=== PATIENT | female | born 1930 | race Caucasian/White ===

== ENCOUNTER 2018-05-06 15:25 | Inpatient (IN) | payer MEDICARE, OTHER ==
[~2018-05-06] VITALS: Ht 177.8 cm; Wt 119.7 kg
[2018-05-06 16:03] LABS: BASOPHILS ABSOLUTE AUTO 0.02 K/mm3 (0.00-0.23); BASOPHILS PERCENT AUTO 0 % (0-2); EOSINOPHILS PERCENT AUTO 0 % (0-6); Hematocrit 36.5 % (33.0-51.0); IMMATURE GRAN ABSOLUTE AUTO 0.06 K/mm3 (0.00-0.10); IMMATURE GRAN PERCENT AUTO 0 % (0-1); LYMPHOCYTES ABSOLUTE AUTO 0.86 K/mm3 (0.84-5.20); LYMPHOCYTES PERCENT AUTO 6 % (21-46); MONOCYTES ABSOLUTE AUTO 0.89 K/mm3 (0.16-1.47); MONOCYTES PERCENT AUTO 6 % (4-13); Mean Corpuscular HGB 28.2 pg (26.0-34.0); Mean Corpuscular HGB Conc 32.9 g/dL (31.5-36.5); Mean Corpuscular Volume 86 fL (80-100); Mean Platelet Volume 10.1 fL (9.1-12.4); NEUTROPHILS PERCENT AUTO 88 % (41-73); Platelet Count 159 K/mm3 (150-400); RDW Coefficient Variation 13.4 % (11.7-14.2); RDW Standard Deviation 42.1 fL (35.1-46.3); Red Blood Cell Count 4.26 M/mm3 (3.80-5.20); White Blood Cell Count 15.43 K/mm3 (4.00-11.30)
[2018-05-06] MEDS ORDERED: Micro-K10 MEQ PO (16:12)
[2018-05-06] MEDS ORDERED: METO2.5 PO (16:12)
[2018-05-06] MEDS ORDERED: AMLO5 PO (16:13)
[2018-05-06] MEDS ORDERED: BENA20 PO (16:13)
[2018-05-06] MEDS ORDERED: BAYER CHEWABLE81 MG PO (16:14)
[2018-05-06] MEDS ORDERED: LEVSOD100 PO (16:14)
[2018-05-06] MEDS ORDERED: CYAN500 PO (16:15)
[2018-05-06] MEDS ORDERED: FURO20 PO (16:16)
[2018-05-06 16:27] LABS: Albumin, Blood 2.8 g/dL (3.4-5.0); Albumin/Globulin Ratio 0.6 (0.8-1.8); Bilirubin, Total 0.7 mg/dL (0.1-1.0); Bun/Creatinine Ratio 21.6 (12.0-20.0); Calcium, Blood 9.1 mg/dL (8.5-10.1); Creatinine, Blood 1.62 mg/dL (0.40-1.00); Globulin, Blood 4.4 g/dL (2.2-4.0); Potassium, Blood 2.8 mmol/L (3.5-5.5); Total Protein, Blood 7.2 g/dL (6.4-8.2); Troponin I 0.086 ng/mL (0.000-0.040)
[2018-05-06 18:22] LABS: Bilirubin, Urine Neg (Neg); Blood, Urine 4+ (Neg); Glucose Qualitative, Urine Neg (Neg); Ketones, Urine Neg (Neg); Leukocyte Esterase, Urine 3+ (Neg); Nitrite, Urine Neg (Neg); Protein, Urine 2+ (Neg); Urobilinogen, Urine NORM (Normal)
[2018-05-06 18:46] LABS: Appearance, Urine Cloudy (Clear); Color, Urine Yellow (P-Yellow)
[2018-05-06 18:56] LABS: White Blood Cells, Urine TNTC /hpf (0-5)
[2018-05-06 18:58] LABS: Bacteria Many /hpf; Squamous Epithelial Cells Many /hpf (Few)
[2018-05-06 18:59] LABS: Renal Epithelial Few /hpf (0-Rare)
[2018-05-06 19:15] LABS: Creatine Kinase MB Index 0.8 (0.0-4.0); Troponin I 0.086 ng/mL (0.000-0.040)
[2018-05-06 20:42] LABS: Influenza A Negative (NEGATIVE); Influenza B Negative (NEGATIVE)
[2018-05-07] MEDS ORDERED: VIT1CAPS12 PO (02:32)
[2018-05-07 03:26] LABS: Hematocrit 34.2 % (33.0-51.0); Hemoglobin 11.1 g/dL (11.5-16.0); Mean Corpuscular HGB 28.2 pg (26.0-34.0); Mean Corpuscular HGB Conc 32.5 g/dL (31.5-36.5); Mean Corpuscular Volume 87 fL (80-100); Mean Platelet Volume 10.3 fL (9.1-12.4); Platelet Count 109 K/mm3 (150-400); RDW Coefficient Variation 13.2 % (11.7-14.2); RDW Standard Deviation 41.8 fL (35.1-46.3); Red Blood Cell Count 3.94 M/mm3 (3.80-5.20); White Blood Cell Count 10.62 K/mm3 (4.00-11.30)
[2018-05-07 03:42] LABS: Creatine Kinase MB 4.1 ng/mL (0.0-3.6); Creatine Kinase MB Index 0.8 (0.0-4.0); Troponin I 0.224 ng/mL (0.000-0.040)
[2018-05-07 03:53] LABS: Magnesium, Blood 1.6 mg/dL (1.6-2.4)
[2018-05-07 03:54] LABS: Albumin, Blood 2.3 g/dL (3.4-5.0); Albumin/Globulin Ratio 0.6 (0.8-1.8); Bilirubin, Total 0.6 mg/dL (0.1-1.0); Bun/Creatinine Ratio 23.1 (12.0-20.0); Calcium, Blood 8.6 mg/dL (8.5-10.1); Creatinine, Blood 1.43 mg/dL (0.40-1.00); Globulin, Blood 3.9 g/dL (2.2-4.0); Potassium, Blood 2.6 mmol/L (3.5-5.5); Thyroid Stimulating Hormone 0.692 uIU/mL (0.360-4.800); Total Protein, Blood 6.2 g/dL (6.4-8.2)
[2018-05-07 03:58] LABS: BAND PERCENT MAN 21 % (0-8); BASOPHILS PERCENT MAN 0 % (0-2); EOSINOPHILS PERCENT MAN 0 % (0-6); LYMPHOCYTES ABSOLUTE MAN 0.21 K/mm3 (0.84-5.20); LYMPHOCYTES PERCENT MAN 2 % (21-46); MONOCYTES ABSOLUTE MAN 0.42 K/mm3 (0.16-1.47); MONOCYTES PERCENT MAN 4 % (4-13); NEUTROPHILS ABSOLUTE MAN 9.98 K/mm3 (1.96-9.15); SEG NEUTROPHILS PERCENT MAN 73 % (41-73); TOTAL CELLS COUNTED 100
[2018-05-07 13:45] LABS: Creatine Kinase MB 6.7 ng/mL (0.0-3.6); Troponin I 0.376 ng/mL (0.000-0.040)
[2018-05-08 05:19] LABS: BASOPHILS ABSOLUTE AUTO 0.01 K/mm3 (0.00-0.23); BASOPHILS PERCENT AUTO 0 % (0-2); EOSINOPHILS PERCENT AUTO 0 % (0-6); Hematocrit 34.9 % (33.0-51.0); Hemoglobin 11.3 g/dL (11.5-16.0); IMMATURE GRAN ABSOLUTE AUTO 0.06 K/mm3 (0.00-0.10); IMMATURE GRAN PERCENT AUTO 1 % (0-1); LYMPHOCYTES ABSOLUTE AUTO 0.71 K/mm3 (0.84-5.20); LYMPHOCYTES PERCENT AUTO 10 % (21-46); MONOCYTES ABSOLUTE AUTO 0.63 K/mm3 (0.16-1.47); MONOCYTES PERCENT AUTO 8 % (4-13); Mean Corpuscular HGB 27.8 pg (26.0-34.0); Mean Corpuscular HGB Conc 32.4 g/dL (31.5-36.5); Mean Corpuscular Volume 86 fL (80-100); Mean Platelet Volume 10.6 fL (9.1-12.4); NEUTROPHILS ABSOLUTE AUTO 6.08 K/mm3 (1.96-9.15); NEUTROPHILS PERCENT AUTO 81 % (41-73); Platelet Count 109 K/mm3 (150-400); RDW Coefficient Variation 13.3 % (11.7-14.2); Red Blood Cell Count 4.07 M/mm3 (3.80-5.20); White Blood Cell Count 7.49 K/mm3 (4.00-11.30)
[2018-05-08 05:40] LABS: Albumin, Blood 2.2 g/dL (3.4-5.0); Anion Gap 9 mmol/L (6-16); Blood Urea Nitrogen 32 mg/dL (8-24); Bun/Creatinine Ratio 26.4 (12.0-20.0); CO2, Blood 28 mmol/L (21-32); Calcium, Blood 9.2 mg/dL (8.5-10.1); Chloride, Blood 101 mmol/L (98-108); Creatinine, Blood 1.21 mg/dL (0.40-1.00); Glomerular Filtration Rate 45 (60-); Glucose, Blood 106 mg/dL (70-99); Phosphorus, Blood 2.4 mg/dL (2.5-4.9); Potassium, Blood 3.1 mmol/L (3.5-5.5); Sodium, Blood 138 mmol/L (136-145)
[2018-05-08 15:59] LABS: Vancomycin, Random 13.2 ug/mL
[2018-05-09 04:53] LABS: Creatinine, Blood 1.26 mg/dL (0.40-1.00); Potassium, Blood 3.7 mmol/L (3.5-5.5)
[2018-05-09 05:57] LABS: BASOPHILS ABSOLUTE AUTO 0.02 K/mm3 (0.00-0.23); BASOPHILS PERCENT AUTO 0 % (0-2); EOSINOPHILS ABSOLUTE AUTO 0.04 K/mm3 (0.00-0.68); EOSINOPHILS PERCENT AUTO 0 % (0-6); Hemoglobin 10.4 g/dL (11.5-16.0); IMMATURE GRAN ABSOLUTE AUTO 0.08 K/mm3 (0.00-0.10); IMMATURE GRAN PERCENT AUTO 1 % (0-1); LYMPHOCYTES ABSOLUTE AUTO 0.85 K/mm3 (0.84-5.20); LYMPHOCYTES PERCENT AUTO 10 % (21-46); MONOCYTES ABSOLUTE AUTO 1.34 K/mm3 (0.16-1.47); MONOCYTES PERCENT AUTO 15 % (4-13); Mean Corpuscular HGB 28.2 pg (26.0-34.0); Mean Corpuscular HGB Conc 32.5 g/dL (31.5-36.5); Mean Corpuscular Volume 87 fL (80-100); Mean Platelet Volume 11.2 fL (9.1-12.4); NEUTROPHILS ABSOLUTE AUTO 6.63 K/mm3 (1.96-9.15); NEUTROPHILS PERCENT AUTO 74 % (41-73); Platelet Count 109 K/mm3 (150-400); RDW Coefficient Variation 13.5 % (11.7-14.2); RDW Standard Deviation 42.9 fL (35.1-46.3); Red Blood Cell Count 3.69 M/mm3 (3.80-5.20); White Blood Cell Count 8.96 K/mm3 (4.00-11.30)
[2018-05-09 17:24] LABS: Vancomycin, Trough 16.4 ug/mL (5.0-10.0)
[2018-05-10 05:29] LABS: BASOPHILS ABSOLUTE AUTO 0.01 K/mm3 (0.00-0.23); BASOPHILS PERCENT AUTO 0 % (0-2); EOSINOPHILS ABSOLUTE AUTO 0.02 K/mm3 (0.00-0.68); EOSINOPHILS PERCENT AUTO 0 % (0-6); Hematocrit 32.5 % (33.0-51.0); Hemoglobin 10.6 g/dL (11.5-16.0); IMMATURE GRAN ABSOLUTE AUTO 0.07 K/mm3 (0.00-0.10); IMMATURE GRAN PERCENT AUTO 1 % (0-1); LYMPHOCYTES ABSOLUTE AUTO 0.79 K/mm3 (0.84-5.20); LYMPHOCYTES PERCENT AUTO 11 % (21-46); MONOCYTES ABSOLUTE AUTO 0.92 K/mm3 (0.16-1.47); MONOCYTES PERCENT AUTO 13 % (4-13); Mean Corpuscular HGB 28.3 pg (26.0-34.0); Mean Corpuscular HGB Conc 32.6 g/dL (31.5-36.5); Mean Corpuscular Volume 87 fL (80-100); NEUTROPHILS ABSOLUTE AUTO 5.18 K/mm3 (1.96-9.15); NEUTROPHILS PERCENT AUTO 74 % (41-73); RDW Coefficient Variation 13.7 % (11.7-14.2); RDW Standard Deviation 43.8 fL (35.1-46.3); Red Blood Cell Count 3.74 M/mm3 (3.80-5.20); White Blood Cell Count 6.99 K/mm3 (4.00-11.30)
[2018-05-10 05:35] LABS: Mean Platelet Volume 11.5 fL (9.1-12.4); Platelet Count 89 K/mm3 (150-400)
[2018-05-10 06:07] LABS: Albumin, Blood 1.9 g/dL (3.4-5.0); Albumin/Globulin Ratio 0.5 (0.8-1.8); Bilirubin, Total 0.3 mg/dL (0.1-1.0); Bun/Creatinine Ratio 28.9 (12.0-20.0); Calcium, Blood 8.9 mg/dL (8.5-10.1); Creatinine, Blood 1.14 mg/dL (0.40-1.00); Potassium, Blood 4.1 mmol/L (3.5-5.5); Total Protein, Blood 5.9 g/dL (6.4-8.2)
[2018-05-11 05:21] LABS: BASOPHILS ABSOLUTE AUTO 0.01 K/mm3 (0.00-0.23); BASOPHILS PERCENT AUTO 0 % (0-2); EOSINOPHILS ABSOLUTE AUTO 0.11 K/mm3 (0.00-0.68); EOSINOPHILS PERCENT AUTO 1 % (0-6); Hematocrit 31.3 % (33.0-51.0); Hemoglobin 10.2 g/dL (11.5-16.0); IMMATURE GRAN ABSOLUTE AUTO 0.07 K/mm3 (0.00-0.10); IMMATURE GRAN PERCENT AUTO 1 % (0-1); LYMPHOCYTES ABSOLUTE AUTO 0.83 K/mm3 (0.84-5.20); LYMPHOCYTES PERCENT AUTO 11 % (21-46); MONOCYTES ABSOLUTE AUTO 1.18 K/mm3 (0.16-1.47); MONOCYTES PERCENT AUTO 15 % (4-13); Mean Corpuscular HGB Conc 32.6 g/dL (31.5-36.5); Mean Corpuscular Volume 86 fL (80-100); Mean Platelet Volume 10.9 fL (9.1-12.4); NEUTROPHILS ABSOLUTE AUTO 5.44 K/mm3 (1.96-9.15); NEUTROPHILS PERCENT AUTO 71 % (41-73); Platelet Count 103 K/mm3 (150-400); RDW Coefficient Variation 13.5 % (11.7-14.2); RDW Standard Deviation 43.1 fL (35.1-46.3); Red Blood Cell Count 3.64 M/mm3 (3.80-5.20); White Blood Cell Count 7.64 K/mm3 (4.00-11.30)
[2018-05-11 05:53] LABS: Bun/Creatinine Ratio 26.8 (12.0-20.0); Calcium, Blood 9.1 mg/dL (8.5-10.1); Creatinine, Blood 1.12 mg/dL (0.40-1.00)
[2018-05-12] MEDS ORDERED: Acetaminophen325 M1 PO (15:06)
[2018-05-12] MEDS ORDERED: ALBU2.5V5 INH (15:06)
[2018-05-12] MEDS ORDERED: BISA5EC PO (15:07)
[2018-05-12] MEDS ORDERED: CEFAZOLIN2 GM/50 M2 IV (15:09)
[2018-05-12] MEDS ORDERED: Miralax17 GM PO (15:09)
== END 2018-05-12 17:35 | DRG 871 ==
LOC: ER 15:25 → PCU 15:26 → MEDS 05-11 01:45
PROVIDERS: Emergency Medicine; Family Medicine; Hospitalist; Internal Medicine; Physician Assistant
DX: A41.01 Sepsis due to Methicillin susceptible Staphylococcus aureus (principal); I33.0 Acute and subacute infective endocarditis; I50.31 Acute diastolic (congestive) heart failure; N17.9 Acute kidney failure, unspecified; E46 Unspecified protein-calorie malnutrition; I13.0 Hypertensive heart and chronic kidney disease with heart failure and stage 1 through stage 4 chronic kidney disease, or unspecified chronic kidney disease; N12 Tubulo-interstitial nephritis, not specified as acute or chronic; N39.0 Urinary tract infection, site not specified; E44.1 Mild protein-calorie malnutrition; I95.9 Hypotension, unspecified; E86.0 Dehydration; E88.09 Other disorders of plasma-protein metabolism, not elsewhere classified; D69.6 Thrombocytopenia, unspecified; E83.42 Hypomagnesemia; N14.1 Nephropathy induced by other drugs, medicaments and biological substances; B96.89 Other specified bacterial agents as the cause of diseases classified elsewhere; B95.61 Methicillin susceptible Staphylococcus aureus infection as the cause of diseases classified elsewhere; N18.3 Chronic kidney disease, stage 3 (moderate); Z96.653 Presence of artificial knee joint, bilateral; E87.6 Hypokalemia; D72.829 Elevated white blood cell count, unspecified; R53.1 Weakness; T50.2X5A Adverse effect of carbonic-anhydrase inhibitors, benzothiadiazides and other diuretics, initial encounter; I87.8 Other specified disorders of veins; Y92.9 Unspecified place or not applicable; M25.552 Pain in left hip; M25.551 Pain in right hip; Z66 Do not resuscitate; M25.561 Pain in right knee; M54.5 Low back pain; R05 Cough; J98.01 Acute bronchospasm; Z95.0 Presence of cardiac pacemaker; Z79.899 Other long term (current) drug therapy; Z79.82 Long term (current) use of aspirin; Z28.20 Immunization not carried out because of patient decision for unspecified reason; Z68.36 Body mass index [BMI] 36.0-36.9, adult
CPT/HCPCS: 36415; 71045; 71046; 72202; 73560-RT; 80048; 80053; 80069; 80202; 81001; 82550; 82553; 83735; 83880; 84145; 84443; 84484; 85025; 85651; 87040; 87077; 87086; 87147; 87186; 87804; 93005; 93010; 93306; 93308; 93970; 94640; 94760; 96361; 96365; 96366; 96367; 96372; 96374; 96375; 96376; 97110; 97116; 97163; 97530; 99285-25; G0378; G8978; G8979; J0690; J0696; J1650; J1940; J2405; J3010; J3370; J3475; J3480; J7030; J7050; J7060

== ENCOUNTER 2018-06-20 05:39 | Day surgery (SDC) | payer MEDICARE, OTHER ==
[~2018-06-20] VITALS: Ht 167.6 cm; Wt 113.0 kg
[~2018-06-20 05:39] MED LIST: ALBU2.5V5 INH; AMLO5 PO; Acetaminophen325 M1 PO; BAYER CHEWABLE81 MG PO; BENA20 PO; BISA5EC PO; CEFAZOLIN2 GM/50 M2 IV; CYAN500 PO; FLORASTOR PO; FURO20 PO; HYDR1TAB94 PO; LEVSOD100 PO; METO2.5 PO; Micro-K10 MEQ PO; Miralax17 GM PO; ONDA4 PO; POTA8 PO; PROM25 PO; VIT1CAPS12 PO; VITAMIN B-12 PO
== END 2018-06-20 22:52 | disposition home or self-care (01) ==
LOC: MHTC 05:39
DX: I05.9 Rheumatic mitral valve disease, unspecified (principal); I39 Endocarditis and heart valve disorders in diseases classified elsewhere; I10 Essential (primary) hypertension; E78.00 Pure hypercholesterolemia, unspecified; Z88.9 Allergy status to unspecified drugs, medicaments and biological substances; Z79.899 Other long term (current) drug therapy
CPT/HCPCS: 93308; 93321; J2250; J3010; J7030

== ENCOUNTER 2018-06-23 15:04 | Day surgery (SDC) | payer MEDICARE, OTHER ==
--- NOTE | 2018-06-23 17:06 | NUR ---
PT ARRIVED WITH PICC LINE IN PLACE, DRESSING C/D/I. CLEANED HUB WITH ALCOHOL WIPE, FLUSHED EASILY WITH 10CC NS, HERNAN BACK BLOOD TO THE HUB. FLUSHED AGAIN WITH 20 CC NS AND CHANGED HB, PLACED SWAB CAP. UNABLE TO REACH NURSE AT [facility] SO THIS RN LEFT A MESSAGE ON VOICE MAIL. SENT WRITTEN DOCUMENTATION BACK TO [facility] WITH PTS SON AND DAUGHTER IN LAW.
== END 2018-06-23 16:00 | disposition home or self-care (01) ==
LOC: ATC 15:04
DX: I33.0 Acute and subacute infective endocarditis (principal); E03.9 Hypothyroidism, unspecified; E66.9 Obesity, unspecified; I13.0 Hypertensive heart and chronic kidney disease with heart failure and stage 1 through stage 4 chronic kidney disease, or unspecified chronic kidney disease; N18.9 Chronic kidney disease, unspecified; I50.30 Unspecified diastolic (congestive) heart failure
CPT/HCPCS: 99211

== ENCOUNTER 2018-07-07 23:32 | Inpatient (IN) | payer MEDICARE, OTHER ==
[~2018-07-07] VITALS: Ht 162.6 cm; Wt 109.0 kg
[2018-07-08 00:05] LABS: BASOPHILS ABSOLUTE AUTO 0.02 K/mm3 (0.00-0.23); BASOPHILS PERCENT AUTO 0 % (0-2); EOSINOPHILS PERCENT AUTO 0 % (0-6); Hematocrit 32.7 % (33.0-51.0); Hemoglobin 10.1 g/dL (11.5-16.0); IMMATURE GRAN ABSOLUTE AUTO 0.04 K/mm3 (0.00-0.10); IMMATURE GRAN PERCENT AUTO 0 % (0-1); LYMPHOCYTES ABSOLUTE AUTO 0.99 K/mm3 (0.84-5.20); LYMPHOCYTES PERCENT AUTO 10 % (21-46); MONOCYTES ABSOLUTE AUTO 0.97 K/mm3 (0.16-1.47); MONOCYTES PERCENT AUTO 9 % (4-13); Mean Corpuscular HGB 28.1 pg (26.0-34.0); Mean Corpuscular HGB Conc 30.9 g/dL (31.5-36.5); Mean Corpuscular Volume 91 fL (80-100); Mean Platelet Volume 10.8 fL (9.1-12.4); NEUTROPHILS ABSOLUTE AUTO 8.41 K/mm3 (1.96-9.15); NEUTROPHILS PERCENT AUTO 81 % (41-73); Platelet Count 195 K/mm3 (150-400); RDW Coefficient Variation 15.2 % (11.7-14.2); RDW Standard Deviation 50.7 fL (35.1-46.3); Red Blood Cell Count 3.59 M/mm3 (3.80-5.20); White Blood Cell Count 10.43 K/mm3 (4.00-11.30)
[2018-07-08 00:18] LABS: Base Excess Venous 6.2 mmol/L; Bicarbonate Venous 29.4 mmol/L (24.0-30.0); PCO2 Venous 44.3 mmHg (38-42); PO2 Venous 89.6 mmHg (38-42); pH Blood Venous 7.44 (7.34-7.37)
[2018-07-08 00:30] LABS: Albumin, Blood 2.7 g/dL (3.4-5.0); Albumin/Globulin Ratio 0.6 (0.8-1.8); Bun/Creatinine Ratio 15.9 (12.0-20.0); Calcium, Blood 9.4 mg/dL (8.5-10.1); Creatinine, Blood 1.07 mg/dL (0.40-1.00); Globulin, Blood 4.7 g/dL (2.2-4.0); Potassium, Blood 3.7 mmol/L (3.5-5.5); Total Protein, Blood 7.4 g/dL (6.4-8.2); Troponin I 0.053 ng/mL (0.000-0.040)
[2018-07-08] MEDS ORDERED: FLONASE SENSIM5.9 ML (03:58)
--- NOTE | 2018-07-08 05:01 | NUR ---
PCU ADMIT/SHIFT SUMMARY PT RESIDENT OF BRANDON RAMÍREZ. BROUGHT TO PCU ROOM 05 BY ELLIOTT FROM THE ER @ APPROX 0300 TODAY ACCOMPANIED BY PT'S SON AND [id number]. PT SLID OVER FROM GURNEY TO PCU BED, PT SOB W/ ROLLING FROM SIDE TO SIDE IN BED AT TIME OF TRANSFER. LUNG SOUNDS CLEAR, SPO2 > 90% ON 6L NC. MONITOR SHOWS PACING, HR 60'S-70'S. PT BROUGHT TO UNIT W/ LEVAQUIN INFUSING PER ORDERS IN RFA IV. PT C/O ITCHING IN R ARM AFTER 18 MLS INFUSED. R ARM FOUND TO HAVE RASH AND PT'S [id number] AT BEDSIDE STATES PT TO HAVE HAD SAME REACTION TO THIS MEDICATION IN THE PAST. LEVAQUIIN STOPPED AND CALL TO MD DEJESUS W/ ORDERS TO DC MEDICATION. MEDICATION NOW ADDED TO PT'S LIST OF ALLERGIES. VSS. NO COMPLAINTS OF PAIN. PT STATES CHRONIC NUMBNESS IN THUMB AND INDEX FINGER OF R HAND AND STATES PREVIOUS CARPAL TUNNEL SURGERY. PT CONTINENT W/ EPISODES OF INCONTINENCE. PT WEARING ATTENDS. DNR BAND APPLIED TO PT'S R WRIST W/ 2 RN'S PRESENT AFTER CONFIRMING CODE STATUS W/ PATIENT. PT SLEEPING IN BED W/ CALL LIGHT IN REACH. WILL CONTINUE TO MONITOR AND PROVIDE CARE UNTIL REPORT OFF TO DAY SHIFT RN.
[2018-07-08 08:16] LABS: Hematocrit 32.1 % (33.0-51.0); Hemoglobin 10.1 g/dL (11.5-16.0); Mean Corpuscular HGB Conc 31.5 g/dL (31.5-36.5); Mean Corpuscular Volume 89 fL (80-100); Mean Platelet Volume 10.2 fL (9.1-12.4); Platelet Count 153 K/mm3 (150-400); RDW Coefficient Variation 15.1 % (11.7-14.2); RDW Standard Deviation 49.2 fL (35.1-46.3); Red Blood Cell Count 3.61 M/mm3 (3.80-5.20); White Blood Cell Count 5.06 K/mm3 (4.00-11.30)
[2018-07-08 08:35] LABS: Albumin, Blood 2.5 g/dL (3.4-5.0); Albumin/Globulin Ratio 0.5 (0.8-1.8); Bilirubin, Total 0.7 mg/dL (0.1-1.0); Bun/Creatinine Ratio 19.3 (12.0-20.0); Calcium, Blood 9.4 mg/dL (8.5-10.1); Creatinine, Blood 0.99 mg/dL (0.40-1.00); Globulin, Blood 4.8 g/dL (2.2-4.0); Potassium, Blood 3.6 mmol/L (3.5-5.5); Total Protein, Blood 7.3 g/dL (6.4-8.2); Troponin I 0.037 ng/mL (0.000-0.040)
--- NOTE | 2018-07-08 08:42 | NUR ---
Assumed Care: Assumed care of pt at approx 0700. VSS. In no apparent sign of distress. Pt is A&Ox4. Calls appropriately. Denies any pain. Repositions self. See shift assessment for detailed assessment. Pt currently resting in bed with call light within reach. Transferred to bedside commode this AM and reports that her breathing felt much better today with that activity. Pt only request is for a diet order this AM. Pt denies any further questions, complaints or requests at this time. States that she is felling much better compared to when she came in to the hospital.
--- NOTE | 2018-07-08 16:21 | NUR ---
Shift Summary No acute changes since initial shift assessment. VSS. In no apparent sign of distress. Pt is A&Ox4. Calling appropriately and repositions self with reminders. No acute changes on tele. Pt has been titrated down to 4L O2 NC and has tolerated this amnt of O2 well with activity. Pt worked with physical therapy this afternoon and tolerated that well. No acute events on tele. Pt ahs denied any acute complaints or events t/o the shift. Currently resting in bed with call light within reach. Family in to see pt today. Pt denies any further questions, complaints or requests at this time. Will continue to [facility] until report is given to trae VAZQUEZ. Pt has been compliant with fluid restriction and new orders from Dr. Sales today. CHF education provided to pt in both oral and written form.
[2018-07-08 16:34] LABS: Troponin I 0.021 ng/mL (0.000-0.040)
--- NOTE | 2018-07-09 04:15 | NUR ---
SHIFT SUMMARY PT A&O X4, CALM AND COOPERATIVE. PT C/O SOB W/ SELF-REPOSITIONING ONTO SIDE WHILE LYING IN BED. SPO2 > 92% ON 3L NC. O2 TEMPORARILY INCREASED TO 4L WHEN PT SOB W/ MILD ANXIETY, THEN TITRATED BACK TO 3L. LUNG SOUNDS DIM W/ FAINT WHEEZE HEARD T/O. PT MOTIVATED TO RECOVER AND RETURN HOME TO HER APARTMENT AT [facility]. PT'S SON IN TO SEE PT THIS SHIFT. CHF EDUCATION PROVIDED TO PT AND PT'S SON. WILL CONTINUE TO MONITOR AND PROVIDE CARE UNTIL REPORT OFF TO DAY SHIFT RN.
--- NOTE | 2018-07-09 15:13 | NUR ---
Assumed Care: Assumed care of pt at approx 0700. VSS. In no apparent sign of distress. Pt is A&Ox4. Calls appropriately and repositions self. Pt periodically sits at bedside and dangles feet. Pt does leg exercises in bad as recommended by physical therapy. Pt on 2L O2 during shift assessment, but titrated down to 1.5L and is tolerating well. See shift assessment for detailed assessment. Pt reports that she is feeling much better. Called Dr. Sales with positive blood culture results this AM at 0900, and Dr. Sales in to see pt. Pt changed to medical status, but no bed assignement at this time. Pt is currently resting in bed with call light within reach. Pt denies any further questions, complaints or requests at this time. Will continue to monitor.
--- NOTE | 2018-07-09 19:27 | NUR ---
Shift Summary No acute changes since initial shift assessment. VSS. In no apparent sign of distress. Pt is in no apparent sign of distress. Pt denies any acute complaints or events t/o the shift. No acute events on tele prior to dc tele. Pt has been titrated down to 1L O2 NC and is tolerating well. Pt has not had any acute respirator events t/o the shift. Currently resting in bed with call light within reach. Denies any further questions, complaints or requests at this time. Report given to trae VAZQUEZ.
--- NOTE | 2018-07-10 04:38 | NUR ---
SHIFT SUMMARY PT MEDICAL, NO TELE STATUS. A&O X4, CALM AND COOPERATIVE, EAGER TO RECOVER AND DISCHARGE HOME. PT LUNG SOUNDS CLEAR, SPO2 > 92% ON 1L NC. PT STATES "I ONLY GOT SHORT OF BREATH ONE TIME LAST NIGHT." EPISODE OF SOB X1 OCCURING W/ AMBULATION TO BSC W/ QUICK RECOVERING AFTER DEEP BREATHING. PT VSS. BLE EDEMA IMPROVING. WILL CONTINUE TO MONITOR AND PROVIDE CARE UNTIL REPORT OFF TO DAY SHIFT RN.
--- NOTE | 2018-07-10 10:47 | NUR ---
ECHOCARDIOGRAM COMPLETE
--- NOTE | 2018-07-10 18:46 | NUR ---
SHIFT SUMMARY- PT ALERT AND ORIENTED SITTING AT THE EOB AT THIS TIME. PT DOES NOT WANT TO ELEVATE HER LEGS STAFF HAVE RECOMENDED. PT IS PLEASENT AND COOPERATIVE WITH CARE. PT HAS HAD NO C/O PAIN T/O THE SHIFT. CARDIOLOGY CONSULT CALLED TODAY FOR POSSIBLE INFECTED LEAD ON THE PT PACEMAKER. PT CONTINUEING ON IV ANTIBIOTICS AT THIS TIME. 20G IV IN THE RIGHT FORE ARM FLUSHES WELL. PT CALL LIGHT IN REACH.
--- NOTE | 2018-07-11 05:31 | NUR ---
SHIFT SUMMARY PT ALERT AND ORIENTED. VS STABLE. O2 SATS HAVE REMAINED ABOVE 92% ON 1L VIA NC. PT ABLE TO AMBULATE TO BSC NEEDED TO VOID. LS CLEAR BUT DIM IN THE BASES. NO CHANGES SINCE INITIAL ASSESSMENT. WILL CONTINUE TO MONITOR AND REPORT TO ONCOMING RN. CALL LIGHT IN REACH.
--- NOTE | 2018-07-11 17:57 | NUR ---
PATIENT WAS UP IN CHAIR THROUGHOUT THE SHIFT. SHE WAS ABLE TO GET TO BEDSIDE COMMODE WITH SBA. SHE IS ALERT AND ORIENTED AND ABLE TO EXPRESS ANY NEEDS. NO COMPLAINTS OF PAIN, SOB, OR NV. SON WAS IN ROOM IN THE MORNING. PATIENT COMPLIANT WITH FLUID RESTRICTIONS. PLEASANT AND COOPERATIVE
[2018-07-12 04:10] LABS: BASOPHILS ABSOLUTE AUTO 0.01 K/mm3 (0.00-0.23); BASOPHILS PERCENT AUTO 0 % (0-2); EOSINOPHILS ABSOLUTE AUTO 0.02 K/mm3 (0.00-0.68); EOSINOPHILS PERCENT AUTO 1 % (0-6); Hematocrit 29.4 % (33.0-51.0); IMMATURE GRAN ABSOLUTE AUTO 0.02 K/mm3 (0.00-0.10); IMMATURE GRAN PERCENT AUTO 1 % (0-1); LYMPHOCYTES ABSOLUTE AUTO 1.37 K/mm3 (0.84-5.20); LYMPHOCYTES PERCENT AUTO 33 % (21-46); MONOCYTES ABSOLUTE AUTO 0.69 K/mm3 (0.16-1.47); MONOCYTES PERCENT AUTO 17 % (4-13); Mean Corpuscular HGB 27.4 pg (26.0-34.0); Mean Corpuscular HGB Conc 30.6 g/dL (31.5-36.5); Mean Corpuscular Volume 89 fL (80-100); Mean Platelet Volume 10.5 fL (9.1-12.4); NEUTROPHILS ABSOLUTE AUTO 2.01 K/mm3 (1.96-9.15); NEUTROPHILS PERCENT AUTO 49 % (41-73); Platelet Count 201 K/mm3 (150-400); RDW Coefficient Variation 14.8 % (11.7-14.2); RDW Standard Deviation 48.5 fL (35.1-46.3); Red Blood Cell Count 3.29 M/mm3 (3.80-5.20); White Blood Cell Count 4.12 K/mm3 (4.00-11.30)
[2018-07-12 04:28] LABS: Alanine Aminotransfer (ALT/SGP <6 U/L (12-78); Albumin, Blood 2.3 g/dL (3.4-5.0); Albumin/Globulin Ratio 0.6 (0.8-1.8); Alk Phos 54 U/L (50-136); Anion Gap 7 mmol/L (6-16); Aspartate Aminotrans (AST/SGOT 14 U/L (12-37); Bilirubin, Total 0.4 mg/dL (0.1-1.0); Blood Urea Nitrogen 22 mg/dL (8-24); Bun/Creatinine Ratio 21.8 (12.0-20.0); CO2, Blood 32 mmol/L (21-32); Chloride, Blood 103 mmol/L (98-108); Creatinine, Blood 1.01 mg/dL (0.40-1.00); Glomerular Filtration Rate 55 (60-); Glucose, Blood 78 mg/dL (70-99); Potassium, Blood 3.4 mmol/L (3.5-5.5); Sodium, Blood 142 mmol/L (136-145); Total Protein, Blood 6.3 g/dL (6.4-8.2)
--- NOTE | 2018-07-12 05:03 | NUR ---
SHIFT SUMMARY PT ALERT AND ORIENTED X 3 THROUGHOUT SHIFT. SHE HAS BEEN PLEASANT AND COOPERATIVE WITH VITALS AND ASSESSMENTS. PT HAD NO ACUTE CHANGES TO VITALS OR ASSESSMENTS T/O THE NIGHT. SHE DENIED ANY COMPLAINTS OF PAIN WITH THE EXCEPTION OF HER LEFT UPPER ARM R/T IV LINE INFILTRATION. THIS WAS RELIEVED WHEN IV WAS PULLED. PT DENIED ANY UNMET NEEDS AND COMMUNICATED WELL WITH STAFF. SHE USED HER CALL LIGHT APPRORPRIATELY AND IT WAS LEFT WITHIN EASY REACH. PT WAS ABLE TO TRASNFER TO [facility] WITH MINIMAL ASSIST. SHE HAS HER BED IN THE LOWEST POSITION AND 2X SIDE RAILS IN PLACE. SHE WILL CONTINUE TO BE MONITORED UNTIL HANDOFF TO DAYSHIFT RN.
--- NOTE | 2018-07-12 14:26 | NUR ---
Spiritual care visit conducted. I introduced myself as I entered patient's room and patient warmly welcomed me. Therapeutic alliance was quickly established as patient openly shared about the adventure of her life. Although there were many difficult times I highlighted her resilience and ability to overcome. I conducted a life/family review, explored her loki traditions, provided spiritual direction and provided prayer. Patient was energetic and inspiring. Patient responded well to the interaction and showed signs of an elevated mood. Patient thanked me for the visit.
--- NOTE | 2018-07-12 17:37 | NUR ---
SHIFT SUMMARY PT RESTING IN BED THROUGHOUT THE DAY. VSS. ALERT AND ORIENTED X3. DENIES PAIN THROUGHOUT THE DAY. UP TO BEDSIDE COMMODE. PER OCCUPATIONAL THERAPY, PT NEEDS TO USE BEDSIDE COMMODE IN BATHROOM. LUNG SOUNDS CLEAR, DIMINISHED BASES. HEART TONES REGULAR, MURMUR NOTED. C/O TINGLING TO 1ST 3 FINGERS ON RIGHT HAND. 2+ PITTING TO RLE, 1+ PITTING EDEMA TO LLE. PT'S FAMILY MENTIONED THAT PT HAD NOT BEEN BATHED SINCE LEAVING [facility]. BED BATH OFFERED TO PT THIS AFTERNOON AND PT REFUSED. ASKED TO HAVE BED BATH AFTER DINNER. WILL CONTINUE TO MONITOR.
[2018-07-13 04:19] LABS: Anion Gap 4 mmol/L (6-16); Blood Urea Nitrogen 27 mg/dL (8-24); Bun/Creatinine Ratio 33.5 (12.0-20.0); CO2, Blood 33 mmol/L (21-32); Calcium, Blood 9.1 mg/dL (8.5-10.1); Chloride, Blood 103 mmol/L (98-108); Creatinine, Blood 0.81 mg/dL (0.40-1.00); Glomerular Filtration Rate >60 (60-); Glucose, Blood 99 mg/dL (70-99); Potassium, Blood 3.8 mmol/L (3.5-5.5); Sodium, Blood 140 mmol/L (136-145)
--- NOTE | 2018-07-13 05:29 | NUR ---
SHIFT SUMMARY PT ALERT AND ORIENTED X 3 THROUGHOUT SHIFT. SHE SLEPT WELL T/O SHIFT, WAKING EASILY FOR VITALS AND ASSESSMENTS. PT DENIED ANY UNMET NEEDS OR COMPLAINTS OF PAIN OR DISCMOFORT DURING THE NIGHT. HER VITALS WERE STABLE AND HER SATS WERE ABOVE 90 ON 1 LITER O2. PT WAS ABLE TO AMBULATE TO BATHROOM WITH FWW AND SBA. SHE WAS ABLE TO MAKE NEEDS KNOWN AND USED HER CALL LIGHT APPROPRIATELY. PT HAS HER BED IN THE LOWEST POSITION, CALL LIGHT IN REACH AND 2X SIDE RAILS IN PLACE. PT WILL CONTINUE TO BE MONITORED UNTIL HANDOFF TO DAYSHIFT RN.
--- NOTE | 2018-07-13 07:42 | NUR ---
Shift Assessment Assumed care of pt at approx 0700. VSS. In no apparent sign of distress. Pt denies any pain. Denies any complaints at this time. Pt waiting to be seen by ID and then will possibly DC back to [facility] for abx therapy. See shift assessment for detailed assessment. Pt is A&Ox3 this AM. Calls appropriately and repositions self. Bed assignment received for medical floor. Pt educated and updated on plan of care and transfer. Pt currently resting in bed with call light within reach. Denies any further questions, complaints or requests at this time. Called receiving T[facility] for report, and waiting for return call at this time.
--- NOTE | 2018-07-13 08:22 | NUR ---
Update: Report called to Ira [facility]. Pt transferred via wheelchair with all belongings/chart/medications via wheelchair and placed on RA for transfer. Pt denies any complaints or requests at time of transfer. Pt in no apparent sign of distress at time of transfer. Transferred to room 333. Notified family of transfer at 0815.
--- NOTE | 2018-07-13 10:30 | NUR ---
Visited with Justa this morning. She is awake and alert, sitting on the edge of her bed. She is waiting for Dr. Sunshine for an ID consult. She reports her appetite is improving slowly and she is hoping to go home soon. Her son and DIL are coming to visit her today and are going to bring her walker from home. She lives at [facility]. She understands that she will likely need terminal gauger supervisor IV antibiotics to treat her infection. She has been in a SNF facility before and prefers not to go to SNF for IV antibiotics. She is hopeful that she will be able to go home and receive IV antibiotics through the outpatient infusion center. She states she is independent with ADLs at home. Currently she is not getting up without assistance nearby while she is in the hospital. She has a powerglide IV in place to her RUE. PC will continue to follow for symptom management and care planning.
--- NOTE | 2018-07-13 16:58 | NUR ---
SHIFT SUMMARY PT WAS PCU XFER THIS SHIFT, REPORT REC FROM TAYLOR [facility], ASSUMED CARE OF PT @ 0820-ARRIVED VIA W/C. SON AT BEDSIDE DURING DR CARRENO CONSULT. NO ACUTE CHANGES, NO COMPLAINTS OF ANY KIND, WILL CONT TO MONITOR UNTIL REPORT GIVEN TO KALYAN VAZQUEZ.
--- NOTE | 2018-07-14 02:03 | NUR ---
PT HAD ONE EPISODE OF VERY DARK BROWN STOOL AND THE WATER IN THE TOILET WAS RED. STOOL WAS UNFORMED. PT REPORTED THAT SHE HAD ONE BOWEL MOVEMENT EARLIER IN THE DAY THAT WAS VERY HARD BUT NOT DARK LIKE THIS ONE. NOTIFIED DR. LR. NEW ORDER FOR H/H NOW, D/C LOVENOX FOR NOW AND SCD'S. H/H DRAWN FROM POWERGLIDE AND SENT TO LAB. AWAITING RESULTS.
[2018-07-14 02:23] LABS: Hematocrit 19.5 % (33.0-51.0)
--- NOTE | 2018-07-14 04:16 | NUR ---
PT HAD SECOND EPISODE, LARGE, OF DARK TARRY STOOL. H/H CAME BACK 6.0/19.5 DOWN FROM CHECK ON 07/12/18 WHICH WAS 9.0/29.4. NOTIFIED DR. LR. NEW ORDERS FOR PROTONIX BOLUS AND DRIP, 2 UNITS OF PRBC'S, AND A GI CONSULT. LOVENOX AND LOW DOSE ASPIRIN D/C'D. SCD'S PLACED ON PT. GI CONSULT CALLED IN. PT ONLY HAS POWERGLIDE AND IS DIFFICULT IV START. SPOKE WITH DR. LR WHO OKAY'D GIVING THE PROTONIX BOLUS FIRST AND NOT STARTING THE PROTONIX DRIP UNTIL AFTER THE BLOOD IS COMPLETE DUE TO NOT BEING ABLE TO RUN THE DRIP AND THE BLOOD AT THE SAME TIME. BOLUS GIVEN AND BLOOD DRAWN FOR TYPE AND SCREEN. AWAITING BLOOD SLIPS AT THIS TIME. PT'S VITAL SIGNS STABLE. REPORTS FEELING "WEAK".
--- NOTE | 2018-07-14 06:28 | NUR ---
SHIFT SUMMARY PT PLEASANT AND COOPERATIVE. AT START OF SHIFT PT FELT OVERALL PRETTY WELL. AMBULATED TO RESTROOM WITH LITTLE DIFFICULTY. DENIED PAIN OR SOB. ON RA. PT HAD 3 EPISODES THIS EVENING OF LOOSE BLOODY STOOL, STARTING OUT VERY DARK BROWN AND BECOMING MORE MAROON IN COLOR. H/H DROPPED. BLOOD PRESSURE REMAINED STABLE. PT REPORTED FEELING WEAK. DR. LR NOTIFIED AND NEW ORDERS FOR 2 UNITS PACKED RED BLOOD CELLS, PROTONIX, AND GI CONSULT. PROTONIX BOLUS GIVEN AND FIRST UNIT OF BLOOD RUNNING. LOVENOX AND ASPIRIN D/C'D. SCD'S ORDERED AND PLACED. PT TOLERATING WELL. PT ALSO REPORTED SOME MUSCLE CRAMPS IN LEFT LEG THAT HAD BEEN OCCURING AT HOME ALSO. PT DID GET 1 DOSE OF TYLENOL LAST NIGHT FOR REPORTED ARTHRITIC PAIN. PT RESTING IN BED AT THIS TIME. BLOOD TRANSFUSING. WILL CONTINUE TO MONITOR AND REPORT TO DAY RN.
[2018-07-14 08:41] LABS: Stool Occult Blood Guaiac 1 Pos (Neg)
[2018-07-14 12:44] LABS: Hemoglobin 9.6 g/dL (11.5-16.0)
--- NOTE | 2018-07-15 05:27 | NUR ---
VSS, AFEBRILE, A/O, POWERGLIDE IN R UA, 1500 ML FL RESTRICTION, SBA TO BSC, NPO AFTER 0900 TODAY FOR LATE AFTERNOON EGD, CALL SON (NUMBER ON THE WHITE BOARD) TO TELL HIM THE TIME OF THE EGD WHEN IT IS SCHEDULED, PLEASANT AND COOPERATIVE
[2018-07-15 05:51] LABS: Hematocrit 23.4 % (33.0-51.0); Hemoglobin 7.4 g/dL (11.5-16.0); Mean Corpuscular HGB 28.4 pg (26.0-34.0); Mean Corpuscular HGB Conc 31.6 g/dL (31.5-36.5); Mean Corpuscular Volume 90 fL (80-100); Platelet Count 178 K/mm3 (150-400); RDW Coefficient Variation 14.5 % (11.7-14.2); RDW Standard Deviation 46.9 fL (35.1-46.3); Red Blood Cell Count 2.61 M/mm3 (3.80-5.20); White Blood Cell Count 4.19 K/mm3 (4.00-11.30)
[2018-07-15 06:27] LABS: Albumin, Blood 2.3 g/dL (3.4-5.0); Anion Gap 5 mmol/L (6-16); Blood Urea Nitrogen 37 mg/dL (8-24); Bun/Creatinine Ratio 41.4 (12.0-20.0); CO2, Blood 30 mmol/L (21-32); Calcium, Blood 9.5 mg/dL (8.5-10.1); Chloride, Blood 108 mmol/L (98-108); Creatinine, Blood 0.89 mg/dL (0.40-1.00); Glomerular Filtration Rate >60 (60-); Glucose, Blood 92 mg/dL (70-99); Phosphorus, Blood 2.4 mg/dL (2.5-4.9); Potassium, Blood 3.7 mmol/L (3.5-5.5); Sodium, Blood 143 mmol/L (136-145)
--- NOTE | 2018-07-15 07:52 | NUR ---
PT REFUSING AM PO MEDS. PT REPORTS SHE ONLY TAKES MEDS WITH FOOD AND SHE IS NPO EXCEPT WATER UNTIL 9AM UPON WHICH SHE WILL BE NPO FOR EGD THIS AFTERNOON.
--- NOTE | 2018-07-15 07:58 | NUR ---
NOTIFIED DR. MORRIS PT'S HGB THIS AM 7.4 AND YESTERDAY IT WAS 9.6. DR. MORRIS SAID TO ORDER 1 UNIT OF PRBC TO BE TRANSFUSED. NO OTHER NEW ORDERS AT THIS TIME.
--- NOTE | 2018-07-15 12:18 | NUR ---
07/15/18 1218 Carroll Tiwari 3-LEAD EKG REVIEWED WITH PHYSICIAN PRIOR TO START OF PROCEDURE.PATIENT CONFIRMS NPO STATUS AND AGREES WITH SCHEDULED PROCEDURE.History, Chart, Medications and Allergies reviewed before start of procedure. MONITOR INTACT WITH CONTINUOUS PULSE OXIMETRY AND INTERMITTENT BP.O2 VIA N/C INTACT THROUGHOUT SEDATION/PROCEDURE.Bite Block Placed
--- NOTE | 2018-07-15 16:28 | NUR ---
SHIFT SUMMARY- PT'S HGB 7.4 THIS AM. PT RECIEVED 1 UNIT PRBC. PT HAD EGD THIS AFTERNOON. DR. RODRIGUEZ REPORTS MULTIPLE BLEEDING ULCERS FOUND DURING EGD. CAUTERIZATION WAS DONE AND PT TO START IV PROTONIX. PT VOMITED CLEAR LIQUID EMESIS AFTER RETURNING FROM PROCEDURE. DR. RODRIGUEZ IN ROOM. MEDS GIVEN PER EMAR. PT REPORTS NAUSEA RESOLVED. PT ON FULL LIQUID DIET. NUMEROUS FAMILY IN TO SEE PT T/O THE DAY. 1 ASSIST WITH FWW TO THE BATHROOM. RESP E/U ON RA. NO OTHER SIGNIFICANT CHANGES THIS SHIFT.
--- NOTE | 2018-07-16 05:09 | NUR ---
VSS, AFEBRILE, A/O, POWERGLIDE IN R UA, NEW ORDER PLACED FOR A PICC TO BE PLACED PRIOR TO D/C, WHICH IS EXPECTED TO BE TOMORROW. PT SLEPT WELL, NO COMPLAINTS.
[2018-07-16 05:19] LABS: Hematocrit 24.9 % (33.0-51.0); Hemoglobin 7.8 g/dL (11.5-16.0); Mean Corpuscular HGB 28.6 pg (26.0-34.0); Mean Corpuscular HGB Conc 31.3 g/dL (31.5-36.5); Mean Corpuscular Volume 91 fL (80-100); RDW Coefficient Variation 15.3 % (11.7-14.2); RDW Standard Deviation 50.7 fL (35.1-46.3); Red Blood Cell Count 2.73 M/mm3 (3.80-5.20); White Blood Cell Count 3.77 K/mm3 (4.00-11.30)
[2018-07-16 05:41] LABS: Albumin, Blood 2.2 g/dL (3.4-5.0); Anion Gap 6 mmol/L (6-16); Blood Urea Nitrogen 27 mg/dL (8-24); Bun/Creatinine Ratio 28.2 (12.0-20.0); CO2, Blood 29 mmol/L (21-32); Chloride, Blood 110 mmol/L (98-108); Creatinine, Blood 0.96 mg/dL (0.40-1.00); Glomerular Filtration Rate 58 (60-); Glucose, Blood 86 mg/dL (70-99); Potassium, Blood 3.9 mmol/L (3.5-5.5); Sodium, Blood 145 mmol/L (136-145)
[2018-07-16 05:42] LABS: Mean Platelet Volume 10.8 fL (9.1-12.4); Platelet Count 135 K/mm3 (150-400)
--- NOTE | 2018-07-16 07:30 | NUR ---
NOTIFIED DR. MORRIS PT'S HGB THIS AM IS 7.8. NOTIFIED DR. MORRIS OPERATIONS AND INTELLIGENCE ASSISTANT RN REPORTS STOOL DOES NOT SHOW ANY SIGNS OF ACTIVE BLEEDING AND PT APPEARS TO BE IMPROVING WITH NO COMPLAINTS. DR. MORRIS REPORTS SHE IS STARTING PT ON IRON THIS AM AND WE WILL CONTINUE TO MONITOR PT. NO NEW ORDERS AT THIS TIME.
--- NOTE | 2018-07-16 10:41 | NUR ---
NOTIFIED DR. MORRIS PT C/O SEVERE KNEE PAIN AND REQUESTING NORCO. DR. MORRIS SAID TO ORDER NORCO 1/2 TAB TO 1 TAB Q6H PRN FOR PAIN. NOTIFIED DR. MORRIS PT'S BP 109/50 THIS AM AND HAS GOTTEN DOWN TO 100 SYSTOLICALLY IN THE LAST [address] MORRIS I HELD PT'S AMLODEPINE, LOTENSIN, LASIX AND SPIROLACTONE THIS AM. DR. MORRIS SAID OK TO GIVE SPIROLACTONE AND LASIX. NO OTHER NEW ORDERS AT THIS TIME.
--- NOTE | 2018-07-16 16:24 | NUR ---
SHIFT SUMMARY- PT C/O KNEE AND HIP PAIN. MEDS GIVEN PER EMAR. PT DENIES N/V. PT DENIES SOB. RESP E/U ON RA. FAMILY IN TO VISIT PT. 1 ASSIST WITH FWW TO THE BATHROOM. NO OTHER SIGNIFICANT CHANGES THIS SHIFT.
--- NOTE | 2018-07-17 04:18 | NUR ---
VSS, AFEBRILE, A/O, PT NEEDS PICC PLACEMENT PRIOR TO DISCHARGE TODAY. PT SLEPT WELL, SBA TO BSC, NO COMPLAINTS. PT LOOKING FORWARD TO GOING HOME TODAY, IF POSSIBLE. PROTONIX IV INFUSING PER ORDER.
--- NOTE | 2018-07-18 05:02 | NUR ---
SHIFT SUMMARY PATIENT HAD AN UNEVENTFUL NIGHT. SOME PAIN TO HER R LEG AT HS WITH POSITIVE RESULTS FROM REQUESTED PAIN MEDICATION. PATIENT HAS BEEN AMBULATING INDEPENDENTLY WITH HER FWW TO AND FROM THE BATHROOM; PATIENT ENCOURAGED TO CALL FOR STAFF ASSIST IF SHE FEELS UNSTEADY/UNSAFE TO TRANSFER SELF. PATIENT ACKNOWLEDGES. VITALS THIS AM INDICATED 85% PULSE OX AND 24 RR; THIS RN RECHECKED VITALS WHEN NOTICED THESE NUMBERS AND PATIENT WAS BREATHING COMFORTABLY AT 20 BREATHS/MIN AND 95% ON RA. PATIENT IS APPROPRIATE WITH STAFF. WILL CONTINUE TO MONITOR.
[2018-07-18 05:31] LABS: BASOPHILS PERCENT AUTO 0 % (0-2); EOSINOPHILS ABSOLUTE AUTO 0.08 K/mm3 (0.00-0.68); EOSINOPHILS PERCENT AUTO 2 % (0-6); Hematocrit 26.5 % (33.0-51.0); Hemoglobin 8.1 g/dL (11.5-16.0); IMMATURE GRAN ABSOLUTE AUTO 0.01 K/mm3 (0.00-0.10); IMMATURE GRAN PERCENT AUTO 0 % (0-1); LYMPHOCYTES ABSOLUTE AUTO 1.29 K/mm3 (0.84-5.20); LYMPHOCYTES PERCENT AUTO 33 % (21-46); MONOCYTES ABSOLUTE AUTO 0.64 K/mm3 (0.16-1.47); MONOCYTES PERCENT AUTO 16 % (4-13); Mean Corpuscular HGB 28.9 pg (26.0-34.0); Mean Corpuscular HGB Conc 30.6 g/dL (31.5-36.5); Mean Platelet Volume 9.7 fL (9.1-12.4); NEUTROPHILS ABSOLUTE AUTO 1.88 K/mm3 (1.96-9.15); NEUTROPHILS PERCENT AUTO 48 % (41-73); Platelet Count 236 K/mm3 (150-400); RDW Coefficient Variation 15.3 % (11.7-14.2); RDW Standard Deviation 53.5 fL (35.1-46.3)
[2018-07-18 05:32] LABS: Mean Corpuscular Volume 95 fL (80-100)
[2018-07-18 05:53] LABS: Albumin, Blood 2.1 g/dL (3.4-5.0); Albumin/Globulin Ratio 0.5 (0.8-1.8); Bilirubin, Total 0.5 mg/dL (0.1-1.0); Bun/Creatinine Ratio 18.1 (12.0-20.0); Calcium, Blood 8.9 mg/dL (8.5-10.1); Potassium, Blood 4.1 mmol/L (3.5-5.5); Total Protein, Blood 6.1 g/dL (6.4-8.2)
--- NOTE | 2018-07-18 18:06 | NUR ---
SHIFT SUMMARY PT INDEPENDENT IN ROOM. DR. BURGESS SAW PT AND STATED TO KEEP POWER GLIDE OVER STARTING PICC AT THIS AND ONLY CHANGE IT IF IT DOSEN'T GO BAD. OUTPATIENT ANTIBIOTICS ORDERED AND TENTATIVE PLANS TO DISCHARGE WHEN MEDS ARRIVE.
[2018-07-19 05:54] LABS: BASOPHILS ABSOLUTE AUTO 0.01 K/mm3 (0.00-0.23); BASOPHILS PERCENT AUTO 0 % (0-2); EOSINOPHILS ABSOLUTE AUTO 0.07 K/mm3 (0.00-0.68); EOSINOPHILS PERCENT AUTO 2 % (0-6); Hematocrit 26.5 % (33.0-51.0); Hemoglobin 8.3 g/dL (11.5-16.0); IMMATURE GRAN ABSOLUTE AUTO 0.02 K/mm3 (0.00-0.10); IMMATURE GRAN PERCENT AUTO 1 % (0-1); LYMPHOCYTES ABSOLUTE AUTO 1.27 K/mm3 (0.84-5.20); LYMPHOCYTES PERCENT AUTO 33 % (21-46); MONOCYTES ABSOLUTE AUTO 0.62 K/mm3 (0.16-1.47); MONOCYTES PERCENT AUTO 16 % (4-13); Mean Corpuscular HGB 28.4 pg (26.0-34.0); Mean Corpuscular HGB Conc 31.3 g/dL (31.5-36.5); Mean Platelet Volume 9.7 fL (9.1-12.4); NEUTROPHILS ABSOLUTE AUTO 1.91 K/mm3 (1.96-9.15); NEUTROPHILS PERCENT AUTO 49 % (41-73); Platelet Count 251 K/mm3 (150-400); RDW Standard Deviation 49.6 fL (35.1-46.3); Red Blood Cell Count 2.92 M/mm3 (3.80-5.20)
[2018-07-19 05:57] LABS: Mean Corpuscular Volume 91 fL (80-100)
[2018-07-19 06:13] LABS: Albumin, Blood 2.3 g/dL (3.4-5.0); Albumin/Globulin Ratio 0.6 (0.8-1.8); Bilirubin, Total 0.4 mg/dL (0.1-1.0); Calcium, Blood 9.6 mg/dL (8.5-10.1); Creatinine, Blood 1.07 mg/dL (0.40-1.00); Potassium, Blood 4.4 mmol/L (3.5-5.5); Total Protein, Blood 6.3 g/dL (6.4-8.2)
--- NOTE | 2018-07-19 06:16 | NUR ---
*SHIFT SUMMARY* PATIENT IS ALERT AND ORIENTED. PATIENT REQUESTED PAIN MEDICATION AT BEGINING OF SHIFT. PATIENT STATES THAT SOMETIMES SHE ONLY TAKES HALF THE PAIN PILL BUT NEEDED THE FULL DOSE AT THAT TIME. PATIENT SLEPT WELL THROUGHOUT THE NIGHT. THIS RN WAS TO DRAW LABS FROM [facility] BUT PATIENT REFUSED AND SAID THAT IT DOES NOT DRAW. LAB CAME TO DRAW PATIENT FOR AM LABS. PATIENT STATES SHE HAS NO PAIN THIS AM AND DOES NOT CURRENTLY NEED A PAIN PILL. PATIENT USES WALKER INDEPENDENTLY TO BATHROOM. CALL LIGHT WITHIN REACH, BED LOWERED AND LOCKED.
--- NOTE | 2018-07-19 18:53 | NUR ---
SHIFT SUMMARY PT WITH A FALL THIS MORNING. REQUESTING FAMILY NOT BE NOTIFIED BUT WAS INFORMED. HAD NO RESIDUAL AFFECT FROM FALL EXCEPT NOTED BRUISE TO R WRIST. PT EVALUATED AGAIN THIS AFTERNOON. APPEARS STABLE ON FEET WHEN UP USING FWW. BED ALARM PLACED AND EXPLAINED TO PT REASONING AND TO CALL FOR ASSIST.
--- NOTE | 2018-07-20 04:25 | NUR ---
VSS, AFEBRILE, A/O, 1 PA TO [facility], POWERGLIDE, S/P FALL YESTERDAY MORNING, NO KNOWN INJURIES FROM THAT, SLEPT WELL, CALLS APPROPRIATELY
[2018-07-20] MEDS ORDERED: ACET325 PO (14:42)
[2018-07-20] MEDS ORDERED: Ceftriaxon2 GM/50 ML IV (14:43)
[2018-07-20] MEDS ORDERED: DOCU100 PO (14:44)
[2018-07-20] MEDS ORDERED: Ferrous Sulfat325 M2 PO (14:45)
[2018-07-20] MEDS ORDERED: Milk Of Ma400 MG/5 M PO (14:47)
[2018-07-20] MEDS ORDERED: SACC250C PO (14:47)
[2018-07-20] MEDS ORDERED: PANT40 PO (14:47)
[2018-07-20] MEDS ORDERED: SPIR25 PO (14:48)
--- NOTE | 2018-07-20 19:35 | NUR ---
PT DISCHARGE INSTRUCTIONS COMPLETED AND DISCUSSED WITH PT AND DAUGHTER IN LAW WHO IS IN CHARGE OF HER CARE. VERIFIED WITH CHRISTIAN VAZQUEZ ABOUT IV ANTIBIOTICS AND HOME HEALTH BEING IN PTS HOME TOMORROW MORNING TO INFUSE. [facility] CALLED FOR W/C RIDE. TO CURB VIA W/C.
== END 2018-07-20 18:45 | disposition home health service (06) | DRG 871 ==
LOC: ER 23:32 → PCU 07-08 02:58 → MEDS 07-08 02:58 → PCU 07-08 03:22 → MEDS 07-13 08:15 → ENPENDDIS 07-20 12:30 → MEDS 07-20 18:45
PROVIDERS: Family Medicine; Hospitalist; Internal Medicine; Internal Medicine Gastroenterology; Physician Assistant; ADMIT Internal Medicine
PROC: 30233N1 Transfusion of Nonautologous Red Blood Cells into Peripheral Vein, Percutaneous Approach (ICD-10-PCS; principal; 2018-07-14)
PROC: 0W3P8ZZ Control Bleeding in Gastrointestinal Tract, Via Natural or Artificial Opening Endoscopic (ICD-10-PCS; 2018-07-15 12:00)
DX: A41.01 Sepsis due to Methicillin susceptible Staphylococcus aureus (principal); J96.21 Acute and chronic respiratory failure with hypoxia; I50.33 Acute on chronic diastolic (congestive) heart failure; J18.9 Pneumonia, unspecified organism; K26.4 Chronic or unspecified duodenal ulcer with hemorrhage; I33.0 Acute and subacute infective endocarditis; I24.8 Other forms of acute ischemic heart disease; D62 Acute posthemorrhagic anemia; Z79.82 Long term (current) use of aspirin; I35.0 Nonrheumatic aortic (valve) stenosis; I34.0 Nonrheumatic mitral (valve) insufficiency; Z95.0 Presence of cardiac pacemaker; F40.240 Claustrophobia; Z66 Do not resuscitate; Z51.5 Encounter for palliative care; I11.0 Hypertensive heart disease with heart failure; Z96.653 Presence of artificial knee joint, bilateral; W18.30XA Fall on same level, unspecified, initial encounter; Y92.230 Patient room in hospital as the place of occurrence of the external cause
CPT/HCPCS: 36415; 71045; 71046; 80048; 80053; 80069; 82270; 82550; 82607; 82728; 82746; 82803; 83540; 83550; 83880; 84145; 84484; 85014; 85018; 85025; 85027; 85651; 86850; 86900; 86901; 86923; 87040; 87077; 87147; 87186; 88305; 88342; 93005; 93010; 93308; 93321; 94640; 94660; 94760; 96374; 96375; 97162; 97164; 97165; 97530; 97535; 99285-25; C9113; J0456; J0696; J1650; J1940; J1956; J2405; J2930; J7030; J7050; J7120; P9016

== ENCOUNTER → 2018-07-30 | Outpatient (CLI) | payer MEDICARE, OTHER ==
[~2018-07-30] MED LIST changes: +ACET325 PO; +Ceftriaxon2 GM/50 ML IV; +DOCU100 PO; +FLONASE SENSIM5.9 ML; +Ferrous Sulfat325 M2 PO; +Milk Of Ma400 MG/5 M PO; +PANT40 PO; +POTA20LUD PO; +SACC250C PO; +SPIR25 PO
[2018-07-30 12:51] LABS: Hematocrit 27.9 % (33.0-51.0); Hemoglobin 8.6 g/dL (11.5-16.0); Mean Corpuscular HGB 27.7 pg (26.0-34.0); Mean Corpuscular HGB Conc 30.8 g/dL (31.5-36.5); Mean Corpuscular Volume 90 fL (80-100); Mean Platelet Volume 10.4 fL (9.1-12.4); Platelet Count 234 K/mm3 (150-400); RDW Coefficient Variation 15.4 % (11.7-14.2); RDW Standard Deviation 50.6 fL (35.1-46.3); Red Blood Cell Count 3.11 M/mm3 (3.80-5.20); White Blood Cell Count 2.79 K/mm3 (4.00-11.30)
[2018-07-30 13:04] LABS: Alanine Aminotransfer (ALT/SGP 14 U/L (12-78); Albumin, Blood 2.7 g/dL (3.4-5.0); Albumin/Globulin Ratio 0.6 (0.8-1.8); Alk Phos 75 U/L (50-136); Anion Gap 6 mmol/L (6-16); Aspartate Aminotrans (AST/SGOT 12 U/L (12-37); Bilirubin, Total 0.2 mg/dL (0.1-1.0); Blood Urea Nitrogen 21 mg/dL (8-24); CO2, Blood 27 mmol/L (21-32); Calcium, Blood 9.3 mg/dL (8.5-10.1); Chloride, Blood 106 mmol/L (98-108); Creatinine, Blood 0.91 mg/dL (0.40-1.00); Globulin, Blood 4.5 g/dL (2.2-4.0); Glomerular Filtration Rate >60 (60-); Glucose, Blood 148 mg/dL (70-99); Potassium, Blood 3.9 mmol/L (3.5-5.5); Sodium, Blood 139 mmol/L (136-145); Total Protein, Blood 7.2 g/dL (6.4-8.2)
[2018-07-30 13:42] LABS: BASOPHILS PERCENT MAN 0 % (0-2); EOSINOPHILS ABSOLUTE MAN 0.11 K/mm3 (0.00-0.68); EOSINOPHILS PERCENT MAN 4 % (0-6); LYMPHOCYTES ABSOLUTE MAN 0.92 K/mm3 (0.84-5.20); LYMPHOCYTES PERCENT MAN 33 % (21-46); METAMYELOCYTE ABSOLUTE MAN 0.05 K/mm3 (0.00-0.00); METAMYELOCYTE PERCENT MAN 2 % (0-0); MONOCYTES ABSOLUTE MAN 0.41 K/mm3 (0.16-1.47); MONOCYTES PERCENT MAN 15 % (4-13); NEUTROPHILS ABSOLUTE MAN 1.28 K/mm3 (1.96-9.15); SEG NEUTROPHILS PERCENT MAN 46 % (41-73); TOTAL CELLS COUNTED 100
== END | disposition home or self-care (01) ==
LOC: LAB SHORT 12:42 → LAB 12:42
PROVIDERS: Hospitalist
DX: I38 Endocarditis, valve unspecified (principal); N39.0 Urinary tract infection, site not specified
CPT/HCPCS: 80053; 85025

== ENCOUNTER 2018-08-07 00:30 | Day surgery (SDC) | payer MEDICARE, OTHER | END 2018-08-07 09:26 | disposition home or self-care (01) | LOC: ATC 00:30 | DX: I33.0 Acute and subacute infective endocarditis (principal); B95.61 Methicillin susceptible Staphylococcus aureus infection as the cause of diseases classified elsewhere; I10 Essential (primary) hypertension; A41.01 Sepsis due to Methicillin susceptible Staphylococcus aureus; I34.0 Nonrheumatic mitral (valve) insufficiency; Z95.0 Presence of cardiac pacemaker | CPT/HCPCS: 96365; J0696 ==

== ENCOUNTER 2018-08-08 00:11 | Day surgery (SDC) | payer MEDICARE, OTHER ==
[2018-08-08 09:23] LABS: BASOPHILS ABSOLUTE AUTO 0.02 K/mm3 (0.00-0.23); BASOPHILS PERCENT AUTO 1 % (0-2); EOSINOPHILS ABSOLUTE AUTO 0.11 K/mm3 (0.00-0.68); EOSINOPHILS PERCENT AUTO 3 % (0-6); Hemoglobin 10.1 g/dL (11.5-16.0); IMMATURE GRAN ABSOLUTE AUTO 0.01 K/mm3 (0.00-0.10); IMMATURE GRAN PERCENT AUTO 0 % (0-1); LYMPHOCYTES ABSOLUTE AUTO 1.03 K/mm3 (0.84-5.20); LYMPHOCYTES PERCENT AUTO 28 % (21-46); MONOCYTES ABSOLUTE AUTO 0.42 K/mm3 (0.16-1.47); MONOCYTES PERCENT AUTO 11 % (4-13); Mean Corpuscular HGB 28.3 pg (26.0-34.0); Mean Corpuscular HGB Conc 30.6 g/dL (31.5-36.5); Mean Corpuscular Volume 92 fL (80-100); NEUTROPHILS PERCENT AUTO 57 % (41-73); Platelet Count 182 K/mm3 (150-400); RDW Coefficient Variation 15.6 % (11.7-14.2); RDW Standard Deviation 53.8 fL (35.1-46.3); Red Blood Cell Count 3.57 M/mm3 (3.80-5.20); White Blood Cell Count 3.69 K/mm3 (4.00-11.30)
--- NOTE | 2018-08-08 09:36 | NUR ---
PTS EXT ARM EXPIRES TOMORROW WILL CALL DR. HERNANDEZ TO SEE WHAT HE WANTS US TO DO
[2018-08-08 09:52] LABS: Albumin, Blood 3.2 g/dL (3.4-5.0); Albumin/Globulin Ratio 0.7 (0.8-1.8); Bilirubin, Total 0.3 mg/dL (0.1-1.0); Bun/Creatinine Ratio 33.5 (12.0-20.0); Calcium, Blood 9.9 mg/dL (8.5-10.1); Creatinine, Blood 0.99 mg/dL (0.40-1.00); Globulin, Blood 4.7 g/dL (2.2-4.0); Potassium, Blood 4.4 mmol/L (3.5-5.5); Total Protein, Blood 7.9 g/dL (6.4-8.2)
== END 2018-08-08 09:45 | disposition home or self-care (01) ==
LOC: ATC 00:11
PROVIDERS: Internal Medicine Infectious Disease
DX: A41.01 Sepsis due to Methicillin susceptible Staphylococcus aureus (principal); I33.0 Acute and subacute infective endocarditis; B95.61 Methicillin susceptible Staphylococcus aureus infection as the cause of diseases classified elsewhere; I10 Essential (primary) hypertension; I34.0 Nonrheumatic mitral (valve) insufficiency; Z95.0 Presence of cardiac pacemaker
CPT/HCPCS: 80053; 85025; 96365; J0696

== ENCOUNTER 2018-08-10 00:26 | Day surgery (SDC) | payer MEDICARE, OTHER | END 2018-08-10 10:05 | disposition home or self-care (01) | LOC: ATC 00:26 | DX: I33.0 Acute and subacute infective endocarditis (principal); I34.0 Nonrheumatic mitral (valve) insufficiency; I10 Essential (primary) hypertension; Z79.899 Other long term (current) drug therapy | CPT/HCPCS: 96365; J0696 ==

== ENCOUNTER 2018-08-13 00:12 | Day surgery (SDC) | payer MEDICARE, OTHER | END 2018-08-13 09:50 | disposition home or self-care (01) | LOC: ATC 00:12 | DX: I33.0 Acute and subacute infective endocarditis (principal); Z79.899 Other long term (current) drug therapy | CPT/HCPCS: J0696 ==

== ENCOUNTER 2018-08-13 09:00 | Day surgery (SDC) | payer MEDICARE, OTHER | END 2018-08-13 09:26 | disposition home or self-care (01) | LOC: ATC 09:00 | DX: A41.01 Sepsis due to Methicillin susceptible Staphylococcus aureus (principal); I33.0 Acute and subacute infective endocarditis; I34.0 Nonrheumatic mitral (valve) insufficiency; I10 Essential (primary) hypertension | CPT/HCPCS: 96365; J0696 ==

== ENCOUNTER 2018-08-14 09:14 | Day surgery (SDC) | payer MEDICARE, OTHER | END 2018-08-14 09:21 | disposition home or self-care (01) | LOC: ATC 09:14 | DX: I33.0 Acute and subacute infective endocarditis (principal); I34.0 Nonrheumatic mitral (valve) insufficiency; Z79.899 Other long term (current) drug therapy | CPT/HCPCS: 96365; J0696 ==

== ENCOUNTER 2018-08-15 00:17 | Day surgery (SDC) | payer MEDICARE, OTHER ==
[2018-08-15 09:15] LABS: BASOPHILS ABSOLUTE AUTO 0.01 K/mm3 (0.00-0.23); BASOPHILS PERCENT AUTO 0 % (0-2); EOSINOPHILS ABSOLUTE AUTO 0.07 K/mm3 (0.00-0.68); EOSINOPHILS PERCENT AUTO 2 % (0-6); Hematocrit 33.7 % (33.0-51.0); Hemoglobin 10.4 g/dL (11.5-16.0); IMMATURE GRAN ABSOLUTE AUTO 0.01 K/mm3 (0.00-0.10); IMMATURE GRAN PERCENT AUTO 0 % (0-1); LYMPHOCYTES ABSOLUTE AUTO 1.22 K/mm3 (0.84-5.20); LYMPHOCYTES PERCENT AUTO 33 % (21-46); MONOCYTES ABSOLUTE AUTO 0.42 K/mm3 (0.16-1.47); MONOCYTES PERCENT AUTO 11 % (4-13); Mean Corpuscular HGB 27.7 pg (26.0-34.0); Mean Corpuscular HGB Conc 30.9 g/dL (31.5-36.5); Mean Corpuscular Volume 90 fL (80-100); Mean Platelet Volume 10.3 fL (9.1-12.4); NEUTROPHILS ABSOLUTE AUTO 1.94 K/mm3 (1.96-9.15); NEUTROPHILS PERCENT AUTO 53 % (41-73); Platelet Count 161 K/mm3 (150-400); RDW Coefficient Variation 15.6 % (11.7-14.2); RDW Standard Deviation 51.5 fL (35.1-46.3); Red Blood Cell Count 3.75 M/mm3 (3.80-5.20); White Blood Cell Count 3.67 K/mm3 (4.00-11.30)
[2018-08-15 09:26] LABS: Albumin, Blood 3.5 g/dL (3.4-5.0); Albumin/Globulin Ratio 0.8 (0.8-1.8); Bilirubin, Total 0.3 mg/dL (0.1-1.0); Bun/Creatinine Ratio 38.1 (12.0-20.0); Calcium, Blood 9.9 mg/dL (8.5-10.1); Creatinine, Blood 1.05 mg/dL (0.40-1.00); Globulin, Blood 4.5 g/dL (2.2-4.0); Potassium, Blood 4.1 mmol/L (3.5-5.5)
--- NOTE | 2018-08-15 09:27 | NUR ---
IV PADDED WITH 2X2S AND WRAPPED WITH COBAN.
== END 2018-08-15 09:26 | disposition home or self-care (01) ==
LOC: ATC 00:17
PROVIDERS: Internal Medicine Infectious Disease
DX: A41.01 Sepsis due to Methicillin susceptible Staphylococcus aureus (principal); I33.0 Acute and subacute infective endocarditis; I34.0 Nonrheumatic mitral (valve) insufficiency; I10 Essential (primary) hypertension
CPT/HCPCS: 80053; 85025; J0696

== ENCOUNTER 2018-08-16 00:21 | Day surgery (SDC) | payer MEDICARE, OTHER | END 2018-08-16 09:22 | disposition home or self-care (01) | LOC: ATC 00:21 | DX: I33.0 Acute and subacute infective endocarditis (principal); I34.0 Nonrheumatic mitral (valve) insufficiency; Z79.899 Other long term (current) drug therapy; Z95.0 Presence of cardiac pacemaker; Z96.653 Presence of artificial knee joint, bilateral | CPT/HCPCS: 96365; J0696 ==

== ENCOUNTER 2018-08-17 00:04 | Day surgery (SDC) | payer MEDICARE, OTHER | END 2018-08-17 09:20 | disposition home or self-care (01) | LOC: ATC 00:04 | DX: I33.0 Acute and subacute infective endocarditis (principal); A41.01 Sepsis due to Methicillin susceptible Staphylococcus aureus; I34.0 Nonrheumatic mitral (valve) insufficiency | CPT/HCPCS: 96365; J0696 ==

== ENCOUNTER 2018-08-23 00:30 | Day surgery (SDC) | payer MEDICARE, OTHER | END 2018-08-23 09:20 | disposition home or self-care (01) | LOC: ATC 00:30 | DX: I33.0 Acute and subacute infective endocarditis (principal); I34.0 Nonrheumatic mitral (valve) insufficiency; I10 Essential (primary) hypertension; Z79.899 Other long term (current) drug therapy; Z95.0 Presence of cardiac pacemaker | CPT/HCPCS: 96365; J0696 ==

== ENCOUNTER 2018-08-24 01:01 | Day surgery (SDC) | payer MEDICARE, OTHER | END 2018-08-24 10:16 | disposition home or self-care (01) | LOC: ATC 01:01 | DX: I33.0 Acute and subacute infective endocarditis (principal); I34.0 Nonrheumatic mitral (valve) insufficiency; I10 Essential (primary) hypertension; Z79.899 Other long term (current) drug therapy | CPT/HCPCS: 96365; J0696 ==

== ENCOUNTER 2018-08-25 00:38 | Day surgery (SDC) | payer MEDICARE, OTHER ==
--- NOTE | 2018-08-25 09:46 | NUR ---
PT STATES CALLED HER AND STATED THAT HER BLOOD CULTURES CAME BACK NEGATIVE AND SHE CAN STOP IV ABX AFTER TODAY'S 08/25/18 DOSE. CHECK MICRO AND BLOOD CULTURES ARE NEGATIVE. IV DC'D POST IV ABX.
== END 2018-08-25 09:27 | disposition home or self-care (01) ==
LOC: ATC 00:38
DX: I33.0 Acute and subacute infective endocarditis (principal); I34.0 Nonrheumatic mitral (valve) insufficiency; I10 Essential (primary) hypertension; Z79.899 Other long term (current) drug therapy
CPT/HCPCS: 96365; J0696